=== PATIENT | male | born 1995 | race Caucasian/White ===

== ENCOUNTER 2021-03-19 17:25 | Emergency (ER) | payer OTHER ==
[~2021-03-19] VITALS: Ht 188 cm; Wt 98.9 kg
[~2021-03-19 17:25] MED LIST: IBUPROFEN 600600 M1 PO; NOHOMEMEDICATIONS
[2021-03-19 18:47] VITALS: BP 125/54
== END 2021-03-19 18:47 | disposition home or self-care (01) ==
LOC: M.ERS 17:25
DX: S01.01XA Laceration without foreign body of scalp, initial encounter (principal); W22.8XXA Striking against or struck by other objects, initial encounter; Y93.89 Activity, other specified; Y92.69 Other specified industrial and construction area as the place of occurrence of the external cause; Y99.0 Civilian activity done for income or pay